=== PATIENT | male | born 1995 | race Caucasian/White ===

== ENCOUNTER 2025-04-09 13:37 | Emergency (ER) | payer OTHER ==
[~2025-04-09] VITALS: Ht 177.8 cm; Wt 99.8 kg
[2025-04-09 13:44] VITALS: BP 125/66
[2025-04-09 13:53] LABS: PLATELET COUNT (AUTO) 194 K/uL (152-348); RED BLOOD CELL COUNT(AUTO) 6.35 MIL/uL (4.06-5.63); RED CELL DISTRIBUTION WIDTH 13.9 % (12.1-16.2); WHITE BLOOD COUNT (AUTO) 6.4 K/uL (3.6-10.2)
[2025-04-09 14:00] LABS: CREATININE 1.8 mg/dL (0.6-1.3); SODIUM SERUM 144 mmol/L (136-145); UREA NITROGEN, BLOOD 19 mg/dL (7-18)
[2025-04-09 14:06] LABS: ASPARTATE AMINOTRANSFERASE 18 U/L (15-37); TOTAL PROTEIN, SERUM 7.4 g/dL (6.4-8.2)
[2025-04-09] MEDS: IV NORMAL SALINE 1000 ML BAG IV ONE (14:11)
[2025-04-09 14:18] LABS: ETHANOL < 3 MG/DL (0-10)
[2025-04-09 14:45] LABS: *BILIRUBIN,URIN NEGATIVE (NEGATIVE); *BLOOD, URINE TRACE (NEGATIVE); *CLARITY,URINE CLEAR (CLEAR); *COLOR,URINE YELLOW (YELLOW); *KETONES,URINE NEGATIVE (NEGATIVE); *PROTEIN,URINE NEGATIVE (NEGATIVE); *UROBILINOGEN,URINE 0.2 E.U./dl (NORMAL); LEUKOCYTE ESTERASE ,URINE NEGATIVE (NEGATIVE); NITRITE, URINE NEGATIVE (NEGATIVE); UGLUCOSE NEGATIVE (NEGATIVE)
[2025-04-09 14:51] LABS: *AMPHETAMINE, URINE NEGATIVE (NEGATIVE); *BARBITURATE, URINE NEGATIVE (NEGATIVE); *BENZODIAZEPINE, URINE NEGATIVE (NEGATIVE); *CANNABINOID, URINE NEGATIVE (NEGATIVE); *COCCAINE, URINE POSITIVE (NEGATIVE); *OPIATE, URINE NEGATIVE (NEGATIVE); *PHENCYCLIDINE SCREEN,URINE NEGATIVE (NEGATIVE); FENTANYL, URINE NEGATIVE (NEGATIVE)
[2025-04-09] MEDS ORDERED: LIDOCAINE HCL 1% 20 ML VIAL ONE (16:03)
[2025-04-09] MEDS ORDERED: IBUP-1955 PO (16:37)
[2025-04-09] MEDS ORDERED: CYCL5TAB PO (16:37)
[2025-04-09] MEDS ORDERED: KETOROLAC TROMETHAMINE 15 MG INJ ONE (16:40)
[2025-04-09] MEDS ORDERED: CYCLOBENZAPRINE HCL 10 MG TABLET ONE (16:40)
[2025-04-09] MEDS: KETOROLAC TROMETHAMINE 15 MG INJ IVP ONE (16:46)
[2025-04-09] MEDS: CYCLOBENZAPRINE HCL 10 MG TABLET PO ONE (16:47)
[2025-04-09] MEDS: HYDROCODONE/APAP 5-325MG TABLET PO ONE (16:49)
[2025-04-09 16:51] VITALS: BP 117/87; O2SAT 98
== END 2025-04-09 16:55 | disposition home or self-care (01) ==
LOC: ER 13:37
DX: S01.111A Laceration without foreign body of right eyelid and periocular area, initial encounter (principal); R56.1 Post traumatic seizures; I50.9 Heart failure, unspecified; I42.9 Cardiomyopathy, unspecified; F17.200 Nicotine dependence, unspecified, uncomplicated; F14.10 Cocaine abuse, uncomplicated; Z88.7 Allergy status to serum and vaccine; Z79.899 Other long term (current) drug therapy; V47.5XXA Car driver injured in collision with fixed or stationary object in traffic accident, initial encounter; Y93.89 Activity, other specified; Y92.410 Unspecified street and highway as the place of occurrence of the external cause; Y99.9 Unspecified external cause status
CPT/HCPCS: 36415; 70450; 84484; 85025; A4606; A4663; G0480; J1885; J3490; J7040